=== PATIENT | female | born 1960 | race Caucasian/White ===

== ENCOUNTER 2024-06-08 14:26 | Emergency (ER) | payer MEDICARE, SELFPAY ==
--- NOTE | ~2024-06-08 | XR_ITS ---
XR chest 1V portable Ordering provider: Mary Bosch MD History: 64 years Female with . recent food bolus/globus sensation, resolved . Comparison: None. FINDINGS: MEDIASTINUM: The cardiac silhouette is not enlarged. Left hilar lymph node calcification. LUNGS: No infiltrates, effusions or pneumothorax. Slightly prominent markings in the left lower lobe. OTHER: No free air under the diaphragm. Degenerative changes of the spine. IMPRESSION: No acute cardiopulmonary pathology. Reviewed, dictated and finalized at location A.
[2024-06-08 14:33] VITALS: BP 162/107; PULSE 108; RESP 20; TEMP 37.1; O2SAT 97
--- NOTE | 2024-06-08 14:48 | ED.SKABFB ---
HPI - Skin/Abscess/Foreign Bdy General Chief complaint: Skin/Abscess/Foreign Body Stated complaint: FB GI Time Seen by Provider: 06/08/24 14:34 Source: patient Mode of arrival: ambulatory Limitations: no limitations History of Present Illness HPI narrative: Presents with concerns that a week all stopped and her throat/chest. Approximately 30 minutes prior to arrival she was eating this and felt a sensation in her mid chest. She was at a wine bar attempted to take applying but she threw this up. She then tried to sip water throughout up as well. She notes that she has occasionally choke before but never required the Heimlich maneuver and has never had a sensation like this with eating. No prior EGD but she has previously had a colonoscopy. At the time my exam, she states she is feeling much better and feels like it has passed. She has been belching. The sensation in her chest is better and is in fact gone. She now feels some residual mild pain superior to sternum but things this is from spitting up. Had not been short of breath throughout. She can swallow water again PMFSH Surgical History Surgical History H/O colonoscopy Social History Social History Alcohol intake: current Exam Narrative: GENERAL: Well-appearing, well-nourished, and in no acute distress. HEAD: Normocephalic, atraumatic. EYES: Non injected, non icteric ENT: Nares clear, no rhinorrhea or epistaxis. NECK: Supple. CHEST: Speaking in full sentences. No respiratory distress. HEART: Regular rate and rhythm. . ABDOMEN: Soft, nondistended. EXTREMITIES: Normal range of motion. No lower extremity edema. SKIN: Warm, dry, no rash. NEURO: No focal deficits. Alert and oriented x3. PSYCH: Normal mood and affect. Course Vital Signs Vital signs: Vital Signs Temperature 98.8 F 06/08/24 14:33 Pulse Rate 108 H 06/08/24 14:33 Respiratory Rate 20 06/08/24 14:33 Blood Pressure 162/107 H 06/08/24 14:33 Pulse Oximetry 97 06/08/24 14:33 Oxygen Delivery Room Air 06/08/24 14:33 Temperature 98.8 F 06/08/24 14:33 Pulse Rate 79 06/08/24 15:55 Respiratory Rate 16 06/08/24 15:55 Blood Pressure 150/91 H 06/08/24 15:55 Pulse Oximetry 99 06/08/24 15:55 Oxygen Delivery Room Air 06/08/24 14:33 MDM - Skin/Abscess/Foreign Bdy MDM Narrative Medical decision making narrative: Patient presents with possible food impaction. Was eating a meatball when she feels like it got stuck in her throat /esophagus. Sensation had been in her mid chest. Initially unable to swallow/keep liquids down. In the emergency department she is afebrile vital signs notable for hypertension tachycardia. While in the ED, she can swallow again, no issues with secretions, sensation in mid chest is better. TOlerates drinking water without issue on my exam. Tachycardia has resolved. Stable for discharge. Imaging Data Radiologist's impression: Impressions Chest X-Ray 06/08/24 15:30 IMPRESSION: No acute cardiopulmonary pathology. ECG Data EKG #1: Attestation: I personally reviewed and interpreted this ECG as follows: ECG completion date: 06/08/24 ECG completion time: 15:26 Interpretation: Normal sinus rhythm at a rate of 67 beats per minute. NE interval 158. QRS 91. QT/QTC 376/392. Good R-wave progression across the precordial leads. T-wave inversion in 3 but otherwise upright in normal in contiguous inferior leads 2 and AVF. No other T-wave inversions. Normal ECG. Discharge Plan Discharge Clinical Impression: Globus sensation Patient Disposition: Home Condition: Stable Instructions: Antibiotic Form, Food Impaction (ED) Additional Instructions: It seems that you might of had a food bolus that was able to spontaneously pass. Make sure to take small bites and chew thoroughly before swallowing. Follow-up with primary care physician as needed. If you do not have 1 the name of doctors listed below. Return to the emergency department with any new, worsening, recurrent, unmanaged symptoms. Patient Language: Indonesian Follow-up/Referrals: PHYSICIAN NOT ON STAFF,NONSTAFF [Primary Care Provider] - Casimiro Melendez MD [Physician] - Stand Alone Forms: Work/School Release IP Time of Disposition: 15:47
--- OUTSIDE RECORDS SUMMARY | 2024-06-08 14:48 | XMS_ITS | Clinical Summary ---
Author Organization [facility] [employer] Address [address] [place] [address] Care Team Providers Care Internal Audit Senior Manager Name Role Phone Earnestine Moses MD Unavailable [phone] Kathi Herrera MD Primary Care Provider [phone] Source Comments [facility] [employer],non-owned Affiliates and Associated Physician Practices is amultiple site organization consisting of ambulatory clinics and hospital sitesin [place], [place], [place] and [place]. This disclosure is being madepursuant to the Care Everywhere program and may not contain all information available regarding this patient. Last updated 17.[facility] [employer] Allergies Active Allergy Reactions Criticality Noted Date Comments Naproxen Urticaria,Itching,Swelling 9 Medications * Be aware that medications may not be up to date on this document. Alwaysverify current medications with the patient. Multiple Vitamins-Iron (MULTIVITAMIN/IRON PO)Indications:Well adult exam Take by mouth once daily. Active Fish Oil OILIndications:Well adult exam Use once daily. Active Cyanocobalamin (VITAMIN B-12 PO)Indications:Well adult exam Take by mouth once daily. Active atorvastatin (LIPITOR) 40 MG tabletIndications:Type 2 diabetes mellitus without complication, without long-term current use of insulin (HCC),Essential hypertension,Hyperchole sterolemia Take 1 tablet by mouth at bedtime 30 tablet 3 06/27/19 18 Active losartan - hydroCHLOROthiazide (HYZAAR) 50-12.5 MG tabletIndications:Type 2 diabetes mellitus without complication, without long-term current use of insulin (HCC),Essential hypertension,Hyperchole sterolemia Take 0.5 tablets by mouth once daily 30 tablet 2 06/27/19 18 Active Active Problems Problem Noted Date Diagnosed Date Type 2 diabetes mellitus wit hout complication, without long-term current use of insulin 06/26/2017 Hypercholesterolemia 06/26/2017 Essential hypertension 06/23/2017 Gastroesophageal reflux disease without esophagi tis 04/17/2015 Overview (04/17/2015): Seems to have gotten worse since weight went up A few weeks ago she was having regurgitation into throat Has worked on modifying diet in last month, has lost 6lbs and sx much better Assessment & Plan (04/17/2015 3:58 PM DITCH TENDER): Declines medication Wants to see if continued weight loss will help Class 3 severe obesity due t o excess calories with body mass index (BMI) of 40.0 to 44.9 in adult 04/17/2015 Overview (04/17/2015): Has lost and gained 100lbs three times Has done WW in past Most recently has begun to cut out carbs Wants to know if I have other suggestions Assessment & Plan (04/17/2015 3:58 PM DITCH TENDER): Will check TSH, cmp for adrenal problem Offered weight loss ctr referral, pt declined Discussed reducing calories, limiting carbs, journaling Pt will continue to work on weight loss, will f/u in 3 months Family history of early CAD 04/17/2015 Overview (04/17/2015): ASCVD <2% however LDL >160 Assessment & Plan (04/17/2015 3:59 PM DITCH TENDER): Advised with 3 family member with early CAD and elevated LDL, I would consider taking statin Pt declined at this time, would like to see how LDL looks this year Resolved Problems Problem Noted Date Diagnosed Date Resolved Date Abdominal discomfort 04/17/2015 018 Overview (04/17/2015): Unable to lay on R side comfortably, feels like she has a grapefruit under R ribcage, can feel her heart pulsing there No pain No n/v/d/c No stool changes Assessment & Plan (04/17/2015 4:01 PM DITCH TENDER): Nothing appreciated on exam Offered pt RUQ US, declined Will see what CMP shows Elevated blood pressure read ing without diagnosis of hypertension 04/17/2015 06/23/2017 Overview (04/17/2015): Elevated blood pressure today Pt thinks it's due to meeting new doctor Assessment & Plan (04/17/2015 4:16 PM DITCH TENDER): Has BP cuff at home, will monitor it Well adult exam 11/28/2011 06/23/2017 Immunizations Immunization Administration Dates Next Due INFLUENZA VACCINE, TRIV. (AF LURIA, FLUZONE TRIVALENT; 6MO+) (IIV3) 11/28/2011,12/09/2008 INFLUENZA VACCINE 12/14/2015, 5,03/09/2013,2010 TDAP (7yrs+) 04/17/2015 Family History Medical History Relation Name Comments Hypertension Father SD Maternal Grandfather CAD (Coronary Artery Disease) Mother Hypertension Mother Hypertension Other 1 Diabetes Other 2 SD Other 3 maternal cousin Relation Name Status Comments Father Maternal Grandfather Mother Other 1 Other 2 Other 3 Social History Tobacco Use Types Packs/Day Years Used Date Smoking Tobacco: Former Cigarettes 1 10 Smokeless Tobacco: Never Comments:quit 2000 Alcohol Use Standard Drinks/Week Comments Yes 0 (1 standard drink = 0.6 oz pur e alcohol) Comments No Sex and Gender Information Value Date Recorded Sex Assigned at Not on file Legal Sex Female 8:01 AM DITCH TENDER Gender Identity Not on file Sexual Orientation Not on file Last Filed Vital Signs Vital Sign Reading Time Taken Comments Blood Pressure 170/110 06/23/2017 9:13 AM CDT Pulse 91 06/23/2017 9:13 AM CDT Temperature 36.7 C (98.1 F) 06/23/2017 9:13 AM CDT Respiratory Rate 16 04/17/2015 1:21 PM DITCH TENDER Oxygen Saturation 99% 06/23/2017 9:13 AM CDT Inhaled Oxygen Concentration - - Weight 136.5 kg (301 lb) 06/23/2017 9:13 AM CDT Height 177.8 cm (5' 10 ) 06/23/2017 9:13 AM CDT Body Mass Index 43.19 06/23/2017 9:13 AM CDT Plan of Treatment Health Maintenance Due Date Last Done Comments BONE DENSITY TESTING 1960 COLOGUARD (AGES 45-75) - COLON CA SCREENING [address] COLONOGRAPHY - COLON CA SCREENING 1960 FIT - COLON CA SCREENING 1959 FLEX SIG - COLON CA SCREENING 1959 HIV SCREENING 05/21/1974 PNEUMOCOCCAL VACCINE 50+ (1 of 2 - PCV) 05/21/1978 PNEUMOCOCCAL VACCINE (1 of 2 - PCV) 05/21/1978 ZOSTER VACCINE (1 of 2) 05/21/2009 MAMMOGRAM 07/28/2014 07/28/2012 PAP SMEAR 10/29/2015 10/28/2012, 11/28/2011 Respiratory Syncytial Virus (RSV) Vaccine Pt: or over 60 yrs (1 - Risk 60-74 years 1-dose series) 2019 SCREENING FOR DIABETES 06/23/2020 8, 06/23/2017, 04/17/2015, Additional history exists COLONOSCOPY - COLON CA SCREENING 11/26/2020 11/26/2010 Colorectal Cancer Screening 11/26/2020 COVID-19 VACCINE ( season) 2023 DEPRESSION SCREENING 02/28/2024 INFLUENZA VACCINE (Season Ended) 2024 12/14/2015, 11/27/2014, 03/09/2013, Additional history exists DTAP/TDAP/TD VACCINES (2 - Td or Tdap) 04/17/2025 04/17/2015 HEPATITIS C SCREENING Completed 04/17/2015 HEPATITIS B VACCINE Aged Out No longe r eligible based on patient's age to complete this topic HIB VACCINE Aged Out No longer eligi ble based on patient's age to complete this topic HPV VACCINE Aged Out No longer eligi ble based on patient's age to complete this topic MENINGOCOCCAL (Group B) VACCINE SHARED DECISION-MAKING Aged Out No longer eligible based on patient's age to complete this topic MENINGOCOCCAL GROUPS A/C/Y/W VACCINE Aged Out No longer eligible based on patient's age to complete this topic Goals Goal Patient Goal Type Associated Problems Recent Progress Patient-Stated? Author Yearly PCP visit Lifestyle No Wilma Schroeder MA Procedures Procedure Name Priority Date/Time Associated Diagnosis Comments COMPREHENSIVE METABOLIC PANEL Routine 06/23/2017 10:30 AM CDT Essential hypertension HEPATITIS C ANTIBODY Routine 04/17/2015 2:34 PM DITCH TENDER Need for hepatitis C screening test from Last 3 Months or Most Recently Relevant to Health Maintenance Results * (ABNORMAL) COMPREHENSIVE METABOLIC PANEL (06/23/2017 10:30 AM CDT) Glucose 115(H) 74 - 106 mg/dL [facility] ACCOUNT BILL BUN 16 7 - 21 mg/dL [facility] ACCOUNT BILL Creatinine 0.88 0.50 - 1.30 mg/dL [facility] ACCOUNT BILL Sodium 141 136 - 145 mmol/L [facility] ACCOUNT BILL Potassium 4.4 3.5 - 5.1 mmol/L [facility] ACCOUNT BILL Chloride 107 98 - 107 mmol/L [facility] ACCOUNT BILL CO2 26 22 - 31 mmol/L [facility] ACCOUNT BILL Calcium 9.9 8.5 - 10.1 mg/dL [facility] ACCOUNT BILL Protein Total 7.1 6.4 - 8.2 gm/dL [facility] ACCOUNT BILL Albumin 4.3 3.4 - 5.0 gm/dL [facility] ACCOUNT BILL Bilirubin Total 0.6 0.2 - 1.0 mg/dL [facility] ACCOUNT BILL Alkaline Phosphatase 87 38 - 126 U/L [facility] ACCOUNT BILL AST 25 5 - 40 U/L [facility] ACCOUNT BILL ALT 45 13 - 61 U/L [facility] ACCOUNT BILL Comment:FASTING eGFR by MDRD >60 >60 mL/min/1.7 3m2 [facility] ACCOUNT BILL eGFR by MDRD >60 >60 mL/min/1.7 3m2 [facility] ACCOUNT BILL Blood BLOOD SPECIMEN / Unknown 06/23/2017 10:30 AM CDT 06/23/2017 Narrative Resulting Agency Comment [facility] [address] [phone] Kortney Ferguson MD LAB - CHEMISTRY ORDERABLES Final Result [facility] ACCOUNT BILL [address] [place] [address] * HEPATITIS C ANTIBODY (04/17/2015 2:34 PM DITCH TENDER) Hepatitis C Antibody Non Reactive Non Reactive [facility] ACCOUNT BILL Comment: Non Reactive - Antibodies to Hepatitis C virus (HCV) were no t detected, result does not exclude early acute HCV infection. Blood specimen (specimen) BLOOD SPECIMEN / Unknown 04/17/2015 2:34 PM DITCH TENDER 04/17/2015 6:27 PM DITCH TENDER Narrative Resulting Agency Comment [facility] [address] [place] [phone] Earnestine Moses MD LAB - CHEMISTRY ORDER PRINCESS Final Result Performing Organization Address [facility] Co de Phone Number [facility] ACCOUNT BILL [address] [place] [address] from Last 3 Months or Most Recently Relevant to Health Maintenance Insurance ANTHEM ANTHEM Care Teams Internal Audit Senior Manager Relationship Specialty Start Date End Date Kathi Herrera MD [address] [place] [address] PCP - General 12/05/19 Earnestine Moses MD Family Medicine 06/23/17
--- OUTSIDE RECORDS SUMMARY | 2024-06-08 14:48 | XMS_ITS | Encounter Summary ---
Author Organization [facility] Address [address] [place] [address] Care Team Providers Care Satellite Communications Engineer Name Role Phone Earnestine Moses MD Unavailable [phone] Kathi Herrera MD Primary Care Provider Encounter Details Date Type Department Care Team (Late st Contact Info) Description 12/05/2019 Lab Requisition [facility] [address] [place] [id number] Jax Bahena MD [address] [place] [address] Social History Tobacco Use Types Packs/Day Years Used Date Smoking Tobacco: Former Cigarettes 1 10 Smokeless Tobacco: Never Comments:quit 2000 Alcohol Use Standard Drinks/Week Comments Yes 0 (1 standard drink = 0.6 oz pur e alcohol) Comments No Sex and Gender Information Value Date Recorded Sex Assigned at Not on file Legal Sex Female 8:01 AM WHEEL ALIGNMENT TECHNICIAN Gender Identity Not on file Sexual Orientation Not on file documented as of this encounter Plan of Treatment Not on file documented as of this encounter Goals Goal Patient Goal Type Associated Problems Recent Progress Patient-Stated? Author Yearly PCP visit Lifestyle No Wilma Schroeder MA documented as of this encounter Procedures Procedure Name Priority Date/Time Associated Diagnosis Comments DERMATOPATHOLOGY Routine 12/04/2019 12:0 0 AM CDT documented in this encounter Results * DERMATOPATHOLOGY (12/04/2019 12:00 AM CDT) Case Report Dermatopathology Report Case: [id number] Authorizing Provider: Jax Bahena MD Collected: 12/04/2019 12:00 AM Ordering Location: [facility] Received: 12/05/2019 12:32 PM Pathologist: Viv Keyes MD Specimen: Skin, left chin 0 3:40 PM CDT DERMATOPATHOLOGY LABORATORY Final Diagnosis Specimen A. SKIN, left chin: NEUROFIBROMA (D36.10) 0 3:40 PM CDT DERMATOPATHOLOGY LABORATORY Clinical History Cyst R/O other 0 3:40 PM CDT DERMATOPATHOLOGY LABORATORY Gross Description Specimen A: Received is one formalin filled container labeled with the patient's name and designated left chin. The specimen consists of a shave biopsy measuring 6x4x2 and 3x2x1 mm. Jar 0. 0 3:40 PM CDT DERMATOPATHOLOGY LABORATORY Microscopic Description Specimen A. SKIN, left chin: Sections show a proliferation of spindled and S-shaped cells within the dermis. The stromal collagen is delicate and pale. 0 3:40 PM CDT DERMATOPATHOLOGY LABORATORY Disclaimer An external and internal positive and negative controls are appropriate for the histochemical, immunohistochemical and immunofluorescence stain(s) in this case (if any), except where stated explicitly. The performance characteristics of the stain(s) cited in this report were developed and its performance characteristic determined by the Dermatopathology Laboratory at [facility], directed by Dr. Chastity Keyes. These tests need not be, and therefore are not, approved by the [place] Food and Drug Administration. The tests are used for clinical purposes. Billing Codes Specimen Charges Stain Charges 66041 1 0 3:40 PM CDT DERMATOPATHOLOGY LABORATORY Embedded Images 0 3:40 PM CDT DERMATOPATHOLOGY LABORATORY Pathology/Cytolog y TISSUE SPECIMEN FROM SKIN / Unknown 12/04/2019 12/05/2019 12:32 PM CDT us Jax Bahena MD LAB - PATHOLOGY/CYTOLOGY ORDERA BLES Final Result DERMATOPATHOLOGY LABORATORY [facility] - Department of Dermatology [facility] Medicine [address] [place] [address], [address] [place] [address], [facility] [phone] documented in this encounter Visit Diagnoses Not on filedocumented in this encounter Care Teams Satellite Communications Engineer Relationship Specialty Start Date End Date Kathi Herrera MD [address] [address] PCP - General 12/05/19 Earnestine Moses MD Family Medicine 06/23/17 documented as of this encounter
--- OUTSIDE RECORDS SUMMARY | 2024-06-08 14:48 | XMS_ITS | Clinical Summary ---
Author Organization [facility] Address [address] [place] [address] Phone Care Team Providers Care Knot Borer Name Role Phone Jameson Wilson MD Primary Care Provider [phone] Allergies Active Allergy Reactions Criticality Noted Date Comments Lisinopril Dizziness Low 09/12/2017 Naproxen Itching,Swelling,Hives High 12/09/2008 Medications aspirin (ECOTRIN EC) 81 mg Tablet, Delayed Release (E.C.) Take 81 mg by mouth daily. Active glucosamine-ch ondroitin (ARTHX DS) 500-400 mg Capsule Take 1 Capsule by mouth. Active homeopathic drugs (ALLERGY CM ORAL) Take by mouth. Active MAGNESIUM GLYCINATE ORAL 04/05/19 22 Active atorvastatin (LIPITOR) 40 mg tabletIndicati ons:Dyslipidem ia Take 1 Tablet (40 mg) by mouth daily. 100 Tablet 3 05/24/19 25 Active atorvastatin (LIPITOR) 40 mg tabletIndicati ons:Dyslipidem ia Take 1 Tablet (40 mg) by mouth daily. 90 Tablet 3 01/25/20 23 025 Discontinued atorvastatin (LIPITOR) 40 mg tabletIndicati ons:Dyslipidem ia TAKE 1 TABLET(40 MG) BY MOUTH DAILY 100 Tablet 05/18/19 25 025 Discontinued(Re order) Active Problems Patient Care Coordination No te Formatting of this note migh t be different from the original. Physical - 05/21 Problem Noted Date Diagnosed Date Myelolipoma of right adrenal gland 06/08/2021 Overview (06/08/2021): CT 06/08/21 Subcentimeter right hepatic dome cystlike lesion is too small to characterize. The gallbladder, pancreas, and left adrenal gland are normal. Tiny right adrenal 8 mm myelolipoma is noted Mri abd 6m Liver cyst 06/08/2021 Colon polyp 01/25/2021 Overview (01/25/2021): 15mm cecal tubulovillous adenoma removed piecemeal. Other TVA as well. Needs repeat colonoscopy in one year 12/2021. Maria Fernanda Baires MD Dyslipidemia 09/12/2017 Overweight (BMI 25.0-29.9) 09/12/2017 Migraine with aura and witho ut status migrainosus, not intractable 09/12/2017 Prediabetes 09/12/2017 Resolved Problems Problem Noted Date Diagnosed Date Resolved Date Benign essential hypertension 09/12/2017 08/07/2020 Encounters Date Type Department Care Team Description 05/23/2024 2:40 PM CDT Office Visit [facility] [address] [place] [address] Jameson Wilson MD Annual physical exam (Primary Dx); Screening mammogram, encounter for; Dyslipidemia; Migraine with aura and without status migrainosus, not intractable; Prediabetes; Overweight (BMI 25.0-29.9); Elevated blood pressure reading without diagnosis of hypertension 05/17/2024 Refill [facility] Care [address] [place] [address] Jameson Wilson MD Dyslipidemia 03/26/2024 External Device Data STL ABSTRACTION Provider, Abstract from Last 3 Months Immunizations Immunization Administration Dates Next Due (ADACEL/BOOSTRIX)(10 YR UP) TDAP VACCINE, 0.5ML, IM 04/17/2015 (PFIZER)(12 YR UP) COVID-19 VACCINE - EMERGENCY USE AUTHORIZATION, MRNA, [id number](PF) 30 MCG/0.3 ML IM SUSP 07/09/2020,06/18/2020 (SHINGRIX)(50 YRS UP) ZOSTER VACCINE RECOMBINANT, 0.5 ML, IM 07/28/2018,03/18/2018 Influenza Seasonal Unspecifi ed Formulation IM 11/18/2017,12/14/2015,11/27/2014,2013,12/27/2010 Influenza Vaccine Quad Split 18 Yrs+ Im 11/22/2018 Influenza Vaccine Tri Split 4+ Im 11/28/2011, Family History Medical History Relation Name Comments Diabetes Half-Brother Diabetes Half-Sister 1 insulin inj Colon Cancer Half-Sister 2 Diabetes Half-Sister 2 Diabetes Half-Sister 3 Breast Cancer Maternal Aunt Heart Attack Maternal Grandfather Heart Attack Mother Lay Muller Other Mother Lay Muller lupus Relation Name Status Comments Half-Brother Alive Half-Sister 1 Alive Half-Sister 2 Alive Half-Sister 3 Alive Maternal Aunt Alive Maternal Grandfather Mother Lay Muller Social History Tobacco Use Types Packs/Day Years Used Date Smoking Tobacco: Former Cigarettes Smokeless Tobacco: Never Tobacco Cessation:Counseling Given: Not Answered Alcohol Use Standard Drinks/Week Comments Yes 0 (1 standard drink = 0.6 oz pur e alcohol) Comments No Sex and Gender Information Value Date Recorded Sex Assigned at Not on file Legal Sex Female 3:19 AM [employer] INTER[employer] Gender Identity Not on file Sexual Orientation Not on file Occupation Industry Job Start Date Job End Date Not on file Not on file Not on file Not on file Last Filed Vital Signs Vital Sign Reading Time Taken Comments Blood Pressure 161/84 05/23/2024 2:33 PM CDT Pulse 64 05/23/2024 2:33 PM CDT Temperature 36.2 C (97.2 F) 03/25/2022 9:31 AM [employer] Respiratory Rate 18 03/25/2022 9:45 AM [employer] Oxygen Saturation 99% 05/23/2024 2:28 PM CDT Inhaled Oxygen Concentration - - Weight 99.3 kg (219 lb) 05/23/2024 2:28 PM CDT Height 182.9 cm (6') 05/23/2024 2:28 PM CDT Body Mass Index 29.7 05/23/2024 2:28 PM CDT Plan of Treatment Upcoming Encounters Date Type Department Care Team (Late st Contact Info) Description 06/12/2025 2:40 PM CDT Office Visit [facility] Care [address] [place] [address] [place] [address] [facility] [address] [place] [address] Health Maintenance Due Date Last Done Comments PNEUMOCOCCAL VACCINE 50+ YEA RS (1 of 2 - PCV) 05/21/1978 FIT-DNA Q 3 years 05/21/2004 FIT/FOBT Q 1 year 05/21/2004 Flex Sig/CT Colonography Q 5 years 05/21/2004 RSV VACCINE (60+ or ) (1 - Risk 60-74 years 1-dose series) 2019 INFLUENZA VACCINE (#1) 2023 , 11/22/2018, 11/18/2017, Additional history exists COVID-19 Vaccine ( - 2023-2 5 season) 2023 07/09/2020, 06/18/2020 BREAST CANCER SCREENING 02/11/2024 02/11/20, 12/16/2021, 12/16/2021, Additional history exists OSTEOPOROSIS SCREENING 05/21/2024 COLORECTAL SCREENING 03/25/2025 03/25/2022, 03/25/2022, 01/12/2021, Additional history exists Colorectal Cancer Screening 03/25/2025 DTAP/TDAP/TD VACCINES (2 - T d or Tdap) 04/17/2025 04/17/2015 Traditional Medicare (O) A nnual Wellness Visit 05/24/2025 05/23/2024 Pre-Diabetes and Diabetes Screening 01/24/2026 01/24/2023, 09/24/2019, 03/20/2019, Additional history exists ZOSTER VACCINE Completed 07/28/2018, 03/18/2018 Procedures Procedure Name Priority Date/Time Associated Diagnosis Comments MAMMO 3D ERIN SCREEN BILAT W OR WO CAD Routine 02/10/2023 11:19 AM [employer] INTER[employer] Encounter for screening mammogram for malignant neoplasm of breast HEMOGLOBIN A1C Routine 01/24/2023 4:01 PM [employer] Prediabetes COLONOSCOPY REPORT 03/25/2022 9: 32 AM [employer] from Last 3 Months or Most Recently Relevant to Health Maintenance Results * MAMMO SCRN BILAT 3D ERIN W OR WO CAD (02/10/2023 11:19 AM [employer]) Anatomical Region Laterality Modality Breast Bilateral Mammography 02/10/2023 11:1 9 AM [employer] Impressions 02/10/2023 11:47 AM [employer] : BI-RADS Category 2, benign mammogram. Recommend yearly bilateral screening mammogram. Narrative 02/10/2023 11:47 AM [employer] EXAM: MAMMO SCRN BILAT 3D ERIN W OR WO CAD DATE: 02/10/2023 CLINICAL HISTORY: Screening in an asymptomatic patient with a history of benign right breast biopsy and no personal or family history of breast cancer TECHNIQUE: Bilateral full field digital mammography and digital tomosynthesis were performed in the CC and MLO projections. Comparison was made to prior bilateral mammograms performed December 16, 2021, November 26, 2020, November 11, 2019, October 25, 2018 and September 20, 2017, a diagnostic right breast mammogram performed October 03, 2017 and right breast ultrasounds performed October 03, 2017 and September 20, 2017. CAD was utilized. FINDINGS: The breast parenchyma is heterogenously dense, which limits evaluation for masses. The parenchymal pattern is unchanged compared to the prior exams. The ovoid dense mass with benign calcification and associated biopsy clip in the mid to deep upper central right breast is unchanged. A small ovoid dense mass in the deep inner left breast is also unchanged. There is no new suspicious asymmetry or mass, area of architectural distortion or suspicious microcalcification. us Jameson Wilson MD MAMMO ORDERABLES Final Res ult * (ABNORMAL) HEMOGLOBIN A1C (01/24/2023 4:01 PM [employer]) HEMOGLOBIN A1C 6.0(H) <5.7 % of total Hgb [facility] Comment: For someone without known diabetes, a hemoglobin A1c value between 5.7% and 6.4% is consistent with prediabetes and should be confirmed with a follow-up test. For someone with known diabetes, a value <7% indicates that their diabetes is well controlled. A1c targets should be individualized based on duration of diabetes, age, comorbid conditions, and other considerations. This assay result is consistent with an increased risk of diabetes. Currently, no consensus exists regarding use of hemoglobin A1c for diagnosis of diabetes for children. ESTIMATED AVERAGE GLUCOSE (MG/DL) 126 mg/dL [facility] ESTIMATED AVERAGE GLUCOSE (MMOL/L) 7.0 mmol/L [facility] Comment: FASTING:YES FASTING: YES Test Performed at: [place] [address] [address] [place] [address] Chele Barnett Blood 01/24/2023 4:01 PM [employer] 01/24/2023 4:02 PM [employer] us Jameson Wilson MD CHEMISTRY ORDERABLES Final Result [facility] [phone] [place] [address] [address] [place] [address] * COLONOSCOPY REPORT (03/25/2022 9:32 AM [employer]) Narrative Procedure Note Maria Fernanda Baires MD - 03/25/2022 9:31 AM CST [facility] Endoscopy Patient Name: Lai Du Procedure Date: 03/25/2022 Date of : 1960 Attending MD: Maria Fernanda Baires MD, Procedure: Colonoscopy Providers: Maria Fernanda Baires MD Referring MD: Jameson Wilson MD Medicines: Monitored Anesthesia Care Complications: No immediate complications. Procedure: Informed consent was obtained for the procedure, including moderate sedation after risks were discussed. Based on the pre-procedure assessment, including review of the patient's medical history, medications, allergies, and review of systems, the patient was deemed to be an appropriate candidate for sedation. A timeout was performed. Continuous ECG monitoring, pulse oximetry, blood pressure monitoring, and direct observation were performed. The Colonoscope was introduced through the anus and advanced to the terminal ileum. The colonoscopy was performed without difficulty. The patient tolerated the procedure well. The quality of the bowel preparation was good. Anatomical landmarks were photographed. Estimated Blood Loss: Estimated blood loss was minimal. Findings: Two sessile polyps were found in the cecum. The polyps were 5 to 10 mm in size. The 10mm polyp was removed with a cold snare. Resection and retrieval were complete. Two sessile polyps were found in the ascending colon. The polyps were 3 to 5 mm in size. These polyps were removed with a jumbo cold forceps. Resection and retrieval were complete. A 3 mm polyp was found in the rectum. The polyp was sessile. The polyp was removed with a jumbo cold forceps. Resection and retrieval were complete. Multiple small-mouthed diverticula were found in the sigmoid colon. The exam was otherwise without abnormality on direct and retroflexion views. Impression: - Two 5 to 10 mm polyps in the cecum, removed with a hot and cold snare. Resected and retrieved. - Two 3 to 5 mm polyps in the ascending colon, removed with a jumbo cold forceps. Resected and retrieved. - One 3 mm polyp in the rectum, removed with a jumbo cold forceps. Resected and retrieved. - Diverticulosis in the sigmoid colon. - The examination was otherwise normal on direct and retroflexion views. Recommendation: - Patient has a contact number available for emergencies. The signs and symptoms of potential delayed complications were discussed with the patient. Return to normal activities tomorrow. Written discharge instructions were provided to the patient. - Resume previous diet. - Continue present medications. - Await pathology results. - Repeat colonoscopy in 3 years for surveillance based on pathology results. Maria Fernanda Baires MD 03/25/2022 9:31:42 AM This report has been signed electronically. Number of Addenda: [address]; [place] [address] Maria Fernanda Baires MD GI PROCEDURE ORDERABLES F inal Result from Last 3 Months or Most Recently Relevant to Health Maintenance Insurance [employer] INSURANCE MEDICARE PART A AND B Advance Directives For more information, please contact: [phone] * Full Code (Latest Code Status on File) Date Activated Date Inactivated Comments 01/12/2021 6:52 AM 01/12/2021 11:08 AM Care Teams Knot Borer Relationship Specialty Start Date End Date Jameson Wilson MD PCP - General Internal Medicine 08/10/17
--- OUTSIDE RECORDS SUMMARY | 2024-06-08 14:48 | XMS_ITS | Continuity of Care Document ---
Author Organization [facility] Address [address] [place] [address] Phone Care Team Providers Care Gripper Installer Name Role Phone Rosalind Dunham MD Unavailable Unavailable Procedures Procedure Date Office/outpatient Visit, [facility] Advance Directives Directive Yes / No Effective Date File Name No Information Encounters Encounter Description Practice Location Reason(s) For Visit Diagnoses Date Provider Providers Copied on Encounter Office/outpat ient Visit, [facility], [address], [place], [place], [id number], [place] tel:[phone] SEC [place] Professional No Information [address]. [address] [facility] [facility] [place], [address], [place]. tel:[phone] Family History Family Member Type Diagnosis Age At Onset No Information Payers Payer name Insurance type Covered republican ID Authoriza tion(s) No Information Social History Type Description Quantity Date Captured Comments Sex Female Smoking Status No Information Chief Complaint And Reason For Visit No Information Reason For Referral Reason For Referral No Information History Of Present Illness Encounter Date Complaint History Of Prese nt Illness No Information Functional Status Date Functional Assessmen t No Information Instructions Date Instruction Additional Infor mation No Information Assessments Type Assessment Date No Information Patient Care Teams Name Effective Dates (start - stop) Status Members No Information
--- OUTSIDE RECORDS SUMMARY | 2024-06-08 14:49 | XMS_ITS | Encounter Summary ---
Author Organization [facility] Address [address] [place] [address] Care Team Providers Care Audio Visual Engineer Name Role Phone Jameson Wilson MD Primary Care Provider [phone] Encounter Details Date Type Department Care Team (Latest Contact Info) Description 12/09/2004 Outpatient Historical [facility] Pradip Francois MD [address] [place] [address] SCREENING MAMM-MAILG NEOPL NEC (Primary Dx) Social History Tobacco Use Types Packs/Day Years Used Date Smoking Tobacco: Never Assessed Comments Unknown Sex and Gender Information Value Date Recorded Sex Assigned at Not on file 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 Gender Identity Not on file Sexual Orientation Not on file documented as of this encounter Plan of Treatment Upcoming Encounters Date Type Department Care Team (Late st Contact Info) Description 06/12/2025 2:40 PM CDT Office Visit [facility] Primary Care [facility] [address] [place] [address] [place] [address] [address] documented as of this encounter Visit Diagnoses Diagnosis Other screening mammogram- Primary documented in this encounter Care Teams Audio Visual Engineer Relationship Specialty Start Date End Date Jameson Wilson MD PCP - General Internal Medicine 08/10/17 documented as of this encounter
--- OUTSIDE RECORDS SUMMARY | 2024-06-08 14:49 | XMS_ITS | Continuity of Care Document ---
Author Organization [facility] Address [address] [place] [address] Phone Care Team Providers Care Coal Yard Supervisor Name Role Phone Juan Bae MD Unavailable Unavailable Allergies, Adverse Reactions, Alerts Substance Reaction Status Criticality naproxen Trouble Breathing Active No Informa tion Procedures Procedure Date OFFICE CONSULTATION Advance Directives Directive Yes / No Effective Date File Name Resuscitation Not Answered N/A N/A Life Support Not Answered N/A N/A Intubation Not Answered N/A N/A Antibiotics Not Answered N/A N/A IV Fluid Support Not Answered N/A N/A Tube Feed Not Answered N/A N/A Other Directive N/A N/A WARNING:The information contained in this section is historical and is provided for information only and does not constitute a legal document or any assurance that the information is still accurate. Please verify the information with the lyon of the legal document before using it for clinical purposes. Encounters Encounter Description Practice Location Reason(s) For Visit Diagnoses Date Provider Providers Copied on Encounter OFFICE CONSULTATION [facility], [address], [place], [address], [phone] [facility] Intermittent knee pain Sep-3 0-201 3 Kathia Martinez. [address], [place], [place], [id number] . tel:[phone] Referring Provider: Eris Fraga (Retired), [address], [place], [address] . tel:[phone] Family History Family Member Type Diagnosis Age At Onset No Information Payers Payer name Insurance type Covered green party ID Seng clark(s) No Information Social History Type Description Quantity Date Captured Comments Alcohol Use Details Unknown Caffeine Use Details Unknown Tobacco Use Status No Information Smoking Status Former smoker Smoking Tobacco Use Details Cigarette: No Details Available Cigarette: No Details Available Sex Female Vital Signs Date / Time: Height Weight BMI Pulse Rate Blood Pressure Temperature Respiratory Rate Body Surface Area Head Circumference Head Circ. Percentile Wt./Blayne. Percentile BMI percentile Pulse Ox Inhaled Ox 9:40 AM 72.00 in 190.00 lbs 25.7 7 kg/m eter (2) 148/88 mm[Hg] Chief Complaint And Reason For Visit No Information Reason For Referral Reason For Referral No Information Plan Of Treatment Date Type Action Status Referral Ordered: RADEX ALISIAE COMPL 4/MORE VIEWS LT ordered History Of Present Illness Encounter Date Complaint History Of Prese nt Illness No Information Functional Status Date Functional Assessmen t No Information Instructions Date Instruction Additional Infor mation Elevated BP discusse d with the patient today and recommended for patient to follow up with their PCP Assessments Type Assessment Date No Information Patient Care Teams Name Effective Dates (start - stop) Status Members No Information
--- OUTSIDE RECORDS SUMMARY | 2024-06-08 14:49 | XMS_ITS | Encounter Summary ---
Author Organization [facility] Address [address] [place] [address] Care Team Providers Care Slot Router Name Role Phone Jameson Wilson MD Primary Care Provider [phone] Encounter Details Date Type Department Care Team (Latest Contact Info) Description 05/31/2001 Outpatient Historical HIS [facility] Pradip Francois MD [address] [facility] [address] [place] [address] UNSP ABNORMAL MAMMOGRAM (Primary Dx) Social History Tobacco Use Types Packs/Day Years Used Date Smoking Tobacco: Never Assessed Comments Unknown Sex and Gender Information Value Date Recorded Sex Assigned at Not on file Legal Sex Female 3:19 AM [employer] Gender Identity Not on file Sexual Orientation Not on file documented as of this encounter Plan of Treatment Upcoming Encounters Date Type Department Care Team (Late st Contact Info) Description 06/12/2025 2:40 PM CDT Office Visit [facility] Primary Care [facility] [address] [place] [address] [place] [address] [address] documented as of this encounter Visit Diagnoses Diagnosis Abnormal mammogram, unspecified- Primary documented in this encounter Care Teams Slot Router Relationship Specialty Start Date End Date Jameson Wilson MD PCP - General Internal Medicine 08/10/17 documented as of this encounter
--- OUTSIDE RECORDS SUMMARY | 2024-06-08 14:49 | XMS_ITS | Encounter Summary ---
Author Organization [facility] Address [address] [place] [address] Care Team Providers Care Technician Terminal And Repeater Name Role Phone Earnestine Moses MD Unavailable [phone] Kathi Herrera MD Primary Care Provider [phone] Encounter Details Date Type Department Care Team (Late st Contact Info) Description 12/09/2020 Lab Requisition [facility] [address] [facility] [place] [id number] Jax Bahena MD [address] [place] [address] Social History Tobacco Use Types Packs/Day Years Used Date Smoking Tobacco: Former Cigarettes 1 10 Smokeless Tobacco: Never Comments:quit 2000 Alcohol Use Standard Drinks/Week Comments Yes 0 (1 standard drink = 0.6 oz pur e alcohol) Comments No Sex and Gender Information Value Date Recorded Sex Assigned at Not on file 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 Author Yearly PCP visit Lifestyle No Wilma Schroeder MA documented as of this encounter Procedures Procedure Name Priority Date/Time Associated Diagnosis Comments DERMATOPATHOLOGY Routine 12/08/2020 12:0 0 AM CDT documented in this encounter Results * DERMATOPATHOLOGY (12/08/2020 12:00 AM CDT) Case Report Dermatopathology Report Case: [id number] Authorizing Provider: Jax Bahena MD Collected: 12/08/2020 12:00 AM Ordering Location: [facility] Received: 12/09/2020 12:47 PM Pathologist: Norah Martin MD Specimen: Skin, right upper arm 6:44 PM CDT DERMATOPATHOLOGY LABORATORY Final Diagnosis Specimen A. SKIN, right upper arm: JUNCTIONAL MELANOCYTIC NEVUS (D22.61) NOT PRESENT AT SAMPLED MARGIN LENTIGO SIMPLEX (L81.4) PRESENT AT MARGIN (see microscopic description) 6:44 PM CDT DERMATOPATHOLOGY LABORATORY Clinical History Nevus R/O atypia. Check margins. 6:44 PM CDT DERMATOPATHOLOGY LABORATORY Gross Description Specimen A: Received is one formalin filled container labeled with the patient's name and designated right upper arm. The specimen consists of a shave biopsy measuring [id number]. The margin is inked green. Jar 0. 6:44 PM CDT DERMATOPATHOLOGY LABORATORY Microscopic Description Specimen A. SKIN, right upper arm: There are nests of melanocytes at the dermal-epidermal junction, highlighted by MART-1/Melan-A immunostain. This lesion is not present at the sampled margin of the specimen. There is orthokeratosis. There is increased pigmentation along the basal layer of the epidermis, especially at the base of the elongated rete ridges. A mildly increased number of melanocytes, highlighted by MART-1/Melan-A immunohistochemical staining, is seen along the basal layer. This lesion is present at the margin of the specimen. Additional deeper sections were obtained and reviewed. 6:44 PM CDT DERMATOPATHOLOGY LABORATORY Disclaimer An external and internal positive and negative controls are appropriate for the histochemical, immunohistochemical and immunofluorescence stain(s) in this case (if any), except where stated explicitly. The performance characteristics of the stain(s) cited in this report were developed and its performance characteristic determined by the Dermatopathology Laboratory at [facility], directed by Dr. Chastity Keyes. These tests need not be, and therefore are not, approved by the [place] Food and Drug Administration. The tests are used for clinical purposes. Billing Codes Specimen Charges Stain Charges 01076 1 18750 1 1 6:44 PM CDT DERMATOPATHOLOGY LABORATORY Embedded Images 6:44 PM CDT DERMATOPATHOLOGY LABORATORY Pathology/Cytolog y TISSUE SPECIMEN FROM SKIN / Unknown 12/08/2020 12/09/2020 12:47 PM CDT Jax Bahena MD LAB - PATHOLOGY/CYTOLOGY ORDERA BLES Final Result DERMATOPATHOLOGY LABORATORY [facility] - Department of Dermatology [address], [address] [phone] documented in this encounter Visit Diagnoses Not on filedocumented in this encounter Care Teams Technician Terminal And Repeater Relationship Specialty Start Date End Date Kathi Herrera MD [address] [phone] PCP - General 12/05/19 Earnestine Moses MD Family Medicine 06/23/17 documented as of this encounter
--- OUTSIDE RECORDS SUMMARY | 2024-06-08 14:49 | XMS_ITS | Encounter Summary ---
Author Organization [facility] Address [address] [place] [address] Care Team Providers Care Manager Pacu Name Role Phone Jameson Wilson MD Primary Care Provider [phone] Encounter Details Date Type Department Care Team (Latest Contact Info) Description 10/16/2000 Outpatient Historical HIS [facility] Pradip Francois MD [address] [facility] [address] [place] [address] Other specified disorder of breast (Primary Dx) Social History Tobacco Use Types Packs/Day Years Used Date Smoking Tobacco: Never Assessed Comments Unknown Sex and Gender Information Value Date Recorded Sex Assigned at Not on file 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 Gender Identity Not on file Sexual Orientation Not on file documented as of this encounter Plan of Treatment Upcoming Encounters Date Type Department Care Team (Late st Contact Info) Description 06/12/2025 2:40 PM CDT Office Visit [facility] Primary Care [facility] [address] [place] [address] [place] [id number] [address] documented as of this encounter Visit Diagnoses Diagnosis Other specified disorder of breast- Primary documented in this encounter Care Teams Manager Pacu Relationship Specialty Start Date End Date Jameson Wilson MD PCP - General Internal Medicine 08/10/17 documented as of this encounter
--- NOTE | 2024-06-08 15:00 | PC.NURSE ---
reports she is sure she just swallowed food bolus. Did drink and was able to swallow without difficulty
--- NOTE | 2024-06-08 15:03 | ECG_ITS ---
Test Date: 2024-06-08 15:26:52 Measurements Intervals [place] Rate: 67 P: 26 NE: 158 QRS: 10 QRSD: 91 T: 14 QT: 376 QTc: 400 Interpretive Statements SINUS RHYTHM CONSIDER INFERIOR INFARCT, AGE INDETERMINATE ABNORMAL ECG No previous ECG available for comparison Electronically Signed On 06-08-2024 15:27:08 CDT by Aroldo Quinonez D.O.
[2024-06-08 15:55] VITALS: BP 150/91; PULSE 79; RESP 16; O2SAT 99
== END 2024-06-08 15:56 | disposition home or self-care (01) ==
PROVIDERS: Emergency Provider Student in an Organized Health Care Education/Training Program
DX: R09.A2 Foreign body sensation, throat (principal); R94.31 Abnormal electrocardiogram [ECG] [EKG]
CPT/HCPCS: 71045; 93005; 99283